=== PATIENT | male | born 1995 | race Two or more races ===

== ENCOUNTER 2016-06-23 04:46 | Inpatient (IN) | payer OTHER ==
[2016-06-23] MEDS ORDERED: NS 0.9% 1000 ML* 2,000 ML IV ONE (05:02)
[2016-06-23 05:15] LABS: Hematocrit 48 % (42-52); Hemoglobin 16.1 g/dl (14.0-18.0); Mean Corpuscular HGB Conc 33 g/dl (31-36); Mean Corpuscular Hemoglobin 28 pg (27-31); Mean Corpuscular Volume 86 fL (80-94); Mean Platelet Volume 8 um3 (7.4-10.4); Red Blood Count 5.65 10^6/ul (4.0-5.4); Red Cell Distribution Width 14 % (10.5-15); White Blood Count 11.2 10^3/ul (3.5-10.8)
[2016-06-23 05:23] LABS: Ammonia 57 mol/L (16-53)
[2016-06-23 05:28] LABS: Acetaminophen < 15 mcg/mL; Alcohol 94 mg/dL (<10); Salicylate < 2.50 mg/dL (<30)
[2016-06-23 05:29] LABS: B Type Natriuretic Peptide 22 pg/mL
[2016-06-23 05:30] LABS: ALT 67 U/L (7-52); AST 46 U/L (13-39); Albumin 4.7 g/dL (3.2-5.2); Alkaline Phosphatase 62 U/L (34-104); Anion Gap 11 mmol/L (2-11); CO2 Carbon Dioxide 22 mmol/L (22-32); Calcium 9.3 mg/dL (8.6-10.3); Chloride 104 mmol/L (101-111); Creatine Kinase 504 U/L (10-223); Potassium 3.1 mmol/L (3.5-5.0); Sodium 137 mmol/L (133-145)
[2016-06-23 05:37] LABS: PCO2 Arterial 29 mmHg (35-45)
[2016-06-23 05:39] LABS: TSH (Thyroid Stimulating Horm) 2.64 mcIU/mL (0.34-5.60)
[2016-06-23] MEDS ORDERED: Ondansetron INJ* 2 MG/ML VIAL ONE (06:07)
[2016-06-23] MEDS ORDERED: METHYLENE BLUE IV ONE ×2 (06:07→08:00)
[2016-06-23] MEDS ORDERED: Ondansetron INJ* 2 MG/ML VIAL IV ONE (06:11)
[2016-06-23] MEDS ORDERED: Midazolam* 1 MG/ML 10 ML VIAL (10 MG) ONE (06:21)
[2016-06-23] MEDS ORDERED: Succinylcholine* 20 MG/ML 10 ML VIAL ONE (06:21)
[2016-06-23 06:22] LABS: BUN/Creatinine Ratio 12.3 (8-20); Blood Urea Nitrogen 13 mg/dL (6-24); C Reactive Protein < 1.00 mg/L (< 5.00); EGFR African American 112.4 (>60); EGFR Non-African American 87.4 (>60); Globulin 2.7 g/dL (2-4); Glucose 133 mg/dL (70-100); Lipase 18 U/L (11.0-82.0); Total Protein 7.5 g/dL (6.4-8.9)
[2016-06-23] MEDS ORDERED: Etomidate* 2 MG/ML 10 ML VIAL ONE (06:22)
[2016-06-23 07:39] LABS: FIO2 100
[2016-06-23 07:43] LABS: PCO2 Arterial 34 mmHg (35-45)
[2016-06-23] MEDS ORDERED: Acetaminophen TAB* 325 MG PO PRN (08:28)
[2016-06-23] MEDS ORDERED: Potassium Chlor TAB* 20 MEQ TAB.ER PO ONE (08:36)
[2016-06-23 09:27] LABS: Urine Bacteria Absent (Absent)
[2016-06-23 09:38] LABS: Benzodiazepine Urine Screen None Detected (None Detect)
--- NOTE | 2016-06-23 10:13 | CONSULT ---
Consult Consult: Consultation Note Critical Care Requesting Physician: Dr Wolff Reason for consult: hypoxia, drug intake Limitations in history/physical: none Date of consult: 06/23/2016 HPI: 20y M with no pmhx. Brought in by EMS after he took 'poppers', complained of chest tightness. According to patient he doesnt recall all the events from last night. He doesnt remember feeling anything. EMS record indicated he was found to be hypoxic, in ER sats 91-92% on RA. Given supplemental O2. Utox otherwise negative. ABG revealed elevated methhemoglobin level. He was found to have elevated lactic acid level, no hypotension and elevated troponins. EKG demonstrated t-wave inversions in inferior leads. He denies any other drug use. He states he was not trying to hurt himself. He denies n/v/cp/sob. headache present now. no abd pain/diarrhea/constip. no dysuria. no blurry vision. no dyspnes on exertion. no other medical problems known to him. He was given IV methylene blue in the ER after poison control was called and hypoxia improved. Current vitals - sat 98% RA, rr 17-18, HR 70-80s sinus rhythm. ED/floor Course: as above ROS: All ROS are negative except positives mentioned above. PMHx: none; suicide attempt history in past? PSHx: none Family History: none Social History: Alcohol-, Smoking-, Drug use-; A student Allergies: none Home Medications: none Vitals: Vital Signs Temp 99.9 F 06/23/16 08:00 Pulse 109 06/23/16 10:30 Resp 14 06/23/16 10:30 BP 128/68 06/23/16 10:30 Pulse Ox 97 06/23/16 10:30 Intake & Output 06/22/16 06/23/16 06/23/16 18:59 06:59 18:59 Output Total 1400 Balance -1400 Weight 165 lb 171 lb 15.369 oz Output: Urine 1400 O2/Vent: RA, sat 97% Infusions: NS infusion 100cc/hour Current Medications: Current Medications Acetaminophen (Tylenol Tab*) 650 mg PO Q4H PRN PRN Reason: PAIN Last Admin: 06/23/16 10:28 Dose: 650 mg Sodium Chloride (Ns 0.9% 1000 Ml*) 1,000 mls @ 100 mls/hr IV PER RATE JOSEFA Physical Exam: General: awake, alert, no distress, no diaphoresis Head: normocephalic, atraumatic HEENT: no pallor, no icterus, moist mucous membranes Neck: no stridor, no jvd CVS: normal rate, normal rhythm, no murmur Resp: bilateral air entry, no rhales, no wheeze, no rhonchi, no acc muscle use Abdomen: soft, nontender, nondistended, bowel sounds present Ext: pulses+, warm, no edema Skin: intact, no breakdown Neuro: awake, alert, orientedx3, moving all extremities, no gross focal deficit Labs: Laboratory Results - last 24 hr 06/23/16 06/23/16 06/23/16 04:45 04:45 04:45 WBC 11.2 H RBC 5.65 H Hgb 16.1 Hct 48 MCV 86 MCH 28 MCHC 33 RDW 14 Plt Count 338 MPV 8 Neut % (Auto) 72.2 Lymph % (Auto) 19.6 L [place] % (Auto) 4.0 Eos % (Auto) 2.1 Baso % (Auto) 2.1 H Absolute Neuts (auto) 8.1 H Absolute Lymphs (auto) 2.2 Absolute Monos (auto) 0.5 Absolute Eos (auto) 0.2 Absolute Basos (auto) 0.2 Absolute Nucleated RBC 0.01 Nucleated RBC % 0 INR (Anticoag Therapy) 0.97 APTT 25.9 L Patient Temperature ABG pH ABG pCO2 ABG pO2 ABG HCO3 ABG O2 Saturation ABG Base Excess Methemoglobin 29.4 H Respiration Rate O2 Delivery Device Ventilator Type Vent Mode FiO2 Inspiratory Time PEEP Pressure Support Pressure Control EPAP IPAP BiPAP Sodium 137 Potassium 3.1 L Chloride 104 Carbon Dioxide 22 Anion Gap 11 BUN 13 Creatinine 1.06 Est GFR ( Amer) 112.4 Est GFR (Non-Af Amer) 87.4 BUN/Creatinine Ratio 12.3 Glucose 133 H Lactic Acid Calcium 9.3 Magnesium 2.0 Total Bilirubin 0.40 AST 46 H ALT 67 H Alkaline Phosphatase 62 Ammonia Total Creatine Kinase 504 H CK-MB (CK-2) 5.2 Troponin I 0.20 H* C-Reactive Protein < 1.00 B-Natriuretic Peptide Total Protein 7.5 Albumin 4.7 Globulin 2.7 Albumin/Globulin Ratio 1.8 Lipase 18 TSH 2.64 Urine Color Urine Appearance Urine pH Ur Specific [place] Urine Protein Urine Ketones Urine Blood Urine Nitrate Urine Bilirubin Urine Urobilinogen Ur Leukocyte Esterase Urine WBC (Auto) Urine RBC (Auto) Urine Bacteria Urinalysis Comment Urine Glucose Urine Ascorbic Acid Salicylates < 2.50 Urine Opiates Screen Acetaminophen < 15 Ur Barbiturates Screen Ur Phencyclidine Scrn Ur Amphetamines Screen U Benzodiazepines Scrn Urine Cocaine Screen U Cannabinoids Screen Serum Alcohol 94 H 06/23/16 06/23/16 06/23/16 04:45 04:45 05:25 WBC RBC Hgb Hct MCV MCH MCHC RDW Plt Count MPV Neut % (Auto) Lymph % (Auto) [place] % (Auto) Eos % (Auto) Baso % (Auto) Absolute Neuts (auto) Absolute Lymphs (auto) Absolute Monos (auto) Absolute Eos (auto) Absolute Basos (auto) Absolute Nucleated RBC Nucleated RBC % INR (Anticoag Therapy) APTT Patient Temperature ABG pH 7.44 ABG pCO2 29 L ABG pO2 95 ABG HCO3 21.7 ABG O2 Saturation 98.7 H ABG Base Excess -3.0 L Methemoglobin Respiration Rate O2 Delivery Device Ventilator Type Vent Mode FiO2 Inspiratory Time PEEP Pressure Support Pressure Control EPAP IPAP BiPAP Sodium Potassium Chloride Carbon Dioxide Anion Gap BUN Creatinine Est GFR ( Amer) Est GFR (Non-Af Amer) BUN/Creatinine Ratio Glucose Lactic Acid 4.0 H* Calcium Magnesium Total Bilirubin AST ALT Alkaline Phosphatase Ammonia 57 H Total Creatine Kinase CK-MB (CK-2) Troponin I C-Reactive Protein B-Natriuretic Peptide 22 Total Protein Albumin Globulin Albumin/Globulin Ratio Lipase TSH Urine Color Urine Appearance Urine pH Ur Specific [place] Urine Protein Urine Ketones Urine Blood Urine Nitrate Urine Bilirubin Urine Urobilinogen Ur Leukocyte Esterase Urine WBC (Auto) Urine RBC (Auto) Urine Bacteria Urinalysis Comment Urine Glucose Urine Ascorbic Acid Salicylates Urine Opiates Screen Acetaminophen Ur Barbiturates Screen Ur Phencyclidine Scrn Ur Amphetamines Screen U Benzodiazepines Scrn Urine Cocaine Screen U Cannabinoids Screen Serum Alcohol 06/23/16 06/23/16 06/23/16 07:23 07:23 08:55 WBC RBC Hgb Hct MCV MCH MCHC RDW Plt Count MPV Neut % (Auto) Lymph % (Auto) [place] % (Auto) Eos % (Auto) Baso % (Auto) Absolute Neuts (auto) Absolute Lymphs (auto) Absolute Monos (auto) Absolute Eos (auto) Absolute Basos (auto) Absolute Nucleated RBC Nucleated RBC % INR (Anticoag Therapy) APTT Patient Temperature Not Reportable ABG pH 7.39 ABG pCO2 34 L ABG pO2 263 H ABG HCO3 22.1 ABG O2 Saturation 99.4 H ABG Base Excess -3.5 L Methemoglobin 2.5 H Respiration Rate Not Reportable O2 Delivery Device Oxymask Ventilator Type Not Reportable Vent Mode Not Reportable FiO2 100 Inspiratory Time Not Reportable PEEP Not Reportable Pressure Support Not Reportable Pressure Control Not Reportable EPAP Not Reportable IPAP Not Reportable BiPAP Not Reportable Sodium Potassium Chloride Carbon Dioxide Anion Gap BUN Creatinine Est GFR ( Amer) Est GFR (Non-Af Amer) BUN/Creatinine Ratio Glucose Lactic Acid Calcium Magnesium Total Bilirubin AST ALT Alkaline Phosphatase Ammonia Total Creatine Kinase CK-MB (CK-2) Troponin I 1.00 H* C-Reactive Protein B-Natriuretic Peptide Total Protein Albumin Globulin Albumin/Globulin Ratio Lipase TSH Urine Color Urine Appearance Urine pH Ur Specific [place] Urine Protein Urine Ketones Urine Blood Urine Nitrate Urine Bilirubin Urine Urobilinogen Ur Leukocyte Esterase Urine WBC (Auto) Urine RBC (Auto) Urine Bacteria Urinalysis Comment Urine Glucose Urine Ascorbic Acid Salicylates Urine Opiates Screen Acetaminophen Ur Barbiturates Screen Ur Phencyclidine Scrn Ur Amphetamines Screen U Benzodiazepines Scrn Urine Cocaine Screen U Cannabinoids Screen Serum Alcohol 06/23/16 06/23/16 06/23/16 08:55 09:05 09:05 WBC RBC Hgb Hct MCV MCH MCHC RDW Plt Count MPV Neut % (Auto) Lymph % (Auto) [place] % (Auto) Eos % (Auto) Baso % (Auto) Absolute Neuts (auto) Absolute Lymphs (auto) Absolute Monos (auto) Absolute Eos (auto) Absolute Basos (auto) Absolute Nucleated RBC Nucleated RBC % INR (Anticoag Therapy) APTT Patient Temperature ABG pH ABG pCO2 ABG pO2 ABG HCO3 ABG O2 Saturation ABG Base Excess Methemoglobin Respiration Rate O2 Delivery Device Ventilator Type Vent Mode FiO2 Inspiratory Time PEEP Pressure Support Pressure Control EPAP IPAP BiPAP Sodium Potassium Chloride Carbon Dioxide Anion Gap BUN Creatinine Est GFR ( Amer) Est GFR (Non-Af Amer) BUN/Creatinine Ratio Glucose Lactic Acid 2.8 H* Calcium Magnesium Total Bilirubin AST ALT Alkaline Phosphatase Ammonia Total Creatine Kinase CK-MB (CK-2) Troponin I C-Reactive Protein B-Natriuretic Peptide Total Protein Albumin Globulin Albumin/Globulin Ratio Lipase TSH Urine Color Green A Urine Appearance Clear Urine pH TNP Ur Specific [place] 1.015 Urine Protein TNP Urine Ketones TNP Urine Blood TNP Urine Nitrate TNP Urine Bilirubin TNP Urine Urobilinogen TNP Ur Leukocyte Esterase TNP Urine WBC (Auto) Trace(0-5/hpf) Urine RBC (Auto) Trace(0-2/hpf) Urine Bacteria Absent Urinalysis Comment Urine Glucose TNP Urine Ascorbic Acid TNP Salicylates Urine Opiates Screen None detected Acetaminophen Ur Barbiturates Screen None detected Ur Phencyclidine Scrn None detected Ur Amphetamines Screen None detected U Benzodiazepines Scrn None detected Urine Cocaine Screen None detected U Cannabinoids Screen None detected Serum Alcohol Imaging: cxr 06/23 - no infiltrate/effusion/ptx Assessment: 20y M with no pmhx; brought in for chest pain/sob? He took 'poppers ' (nitrates) and was hypoxic. -Acute hypoxia 2/2 to methemoglobinemia induced by Nitrates -Elevated troponins, NSTEMI type II from hypoxia is suspected -Hyperlactatemia Plan: Neuro- stable. will need psychiatry eval. unlikely to be suicide attempt. CVS-hemodyn stable. no hypotension. lactic acid level elevated likely from acute hypoxia. trending down now. no hemodyn instability noted. cont NS infusion for hydration. Elevated troponin to 1, EKG demonstrated inf wall twave inversions only, no other ST changes. follow up repeat EKG now. Trend troponin. ECHO today. Cardiology consult. Most likely demand ischemia from hypoxia, type II NSTEMI. Resp-no resp distress now. on RA. CXR clear. ABG reviewed. s/p IV methylene blue administration, now hypoxia resolved. NC supplemental o2 as needed. no indication for ABG again now, seems improved clinically. ID-no wbc elevation or signs of sepsis. no abx indicated. lactic acid from non- infectious etiology. GI-regular diet Renal-normal Cr, IVF NS infusion. no patel. making urine. Heme-no anemia. no bleeding. elevated methemoglobin levels on admission, s/p methylene blue adminsitration. advised patient he may have relative enzyme def causing ppt'ion of methemoglobin, needs to stop 'poppers' and will need education on likely avoiding certain abx/medications in the future. Endo- no h/o dm Musculsk-some pain, prn tylenol Wounds-none Nutrition-regular diet DVT prophylaxis: none, not at risk for dvt, can mobilize GI prophylaxis:none Central Line:none Arterial Line:none Patel Cathetor:none Disposition: ICU for hypoxia 2/2 to methhemoglobinemia. now improved. Code Status: full code Aly Carmona MD Plumber'S Assistant (Electronically Signed)
--- NOTE | 2016-06-23 10:16 | PN ---
Progress Note - Progress Note Note: Repeat troponin is up to 1.0. I spoke with cardiology who felt that the elevated troponin was likely related to hypoperfusion and low oxygen levels from ingestion of the isobutyl nitrite. He agreed with obtaining an echo and following up the troponin but no further work up is necessary.
--- NOTE | 2016-06-23 10:38 | RAD ---
Indication: Overdose. Low O2 saturation. Comparison: None. Technique: Upright AP 0511 hours Report: Lung volumes are within normal limits. Mild reticular opacities in the bilateral lower lung zones. Negative for pleural effusion or pneumothorax. The heart, pulmonary vasculature, and mediastinal contours are unremarkable. IMPRESSION: Mild reticular opacities in the bilateral lower lung zones may represent atelectasis or inflammatory infiltrate/aspiration.
[2016-06-23] MEDS: NS 0.9% 1000 ML* 1,000 ML IV SCH (17:23)
--- NOTE | 2016-06-23 17:29 | HP ---
HISTORY AND PHYSICAL: DATE OF ADMISSION: 06/23/16 PRIMARY CARE PROVIDER: None. CHIEF COMPLAINT: Altered mental status and ingestion of isobutyl nitrite. HISTORY OF PRESENT ILLNESS: Mr. Forbes is a 20-year-old male, who has sex with men, who presents to the emergency room after ingesting up to possibly 2 bottles of isobutyl nitrite, also known as "sylvester." The patient states that he does not remember the events of last evening or early this morning at all. He states that everything is very hazy. The patient's partner, Esvin, is present at the time of my evaluation, and the patient agrees to allow me to speak with him. Esvin states that last evening, they got into an argument and essentially the patient was screaming that he did not feel that Esvin cared for him at all. Esvin believes that he drank a bottle of the isobutyl nitrite at that time. He then began dry heaving significantly. Esvin was leaving to the parking lot when he noticed Augusto' dry heaving. He came back to him. Augusto then locked himself in the apartment. Esvin had to breakdown the front door and began calling 911. The patient was found in the shower with another bottle of the isobutyl nitrite (making this 2 bottles). Esvin stated that he remained on the phone with 911 until police arrived. The patient was reportedly screaming at the profiling machine setup operator that no body needed to come, that he was fine. It was Esvin's impression that Augusto was trying to kill himself by ingesting the isobutyl nitrite. The patient was brought to the emergency room, where he was noted to be very diaz in color. PAST MEDICAL HISTORY: None. SURGICAL HISTORY: Tonsillectomy. MEDICATIONS: None. ALLERGIES: No known drug allergies. FAMILY HISTORY: Mom is living, she is 46 and healthy. Dad is living, his health is unknown. He has no siblings. He does not smoke. He drinks on occasion, but when he does drink, he does binge drink. He states that he huffs the isobutyl nitrite from time to time, but this is first time he ingested it. He works doing clerical work. He is not . He has no children. His partner, Esvin, again, is present at the time of my evaluation. I asked the patient who would you want as his surrogate decision maker and at this time he is unable to choose an individual to make his decisions for him. REVIEW OF SYSTEMS: The patient denies any fevers, chills, or anorexia. No chest pain. No edema. No palpations. No cough. He has mild shortness of breath. No abdominal pain. He has had intermittent nausea. No diarrhea or constipation. No hematuria or dysuria. No focal weakness or sensory loss. No sudden changes in vision. No dysphagia. No joint pains or muscle pains out of ordinary. No rashes. He does admit to anxiety and depression. PHYSICAL EXAMINATION GENERAL: The patient is a well-developed young male, sitting up in the bed, in no acute distress. VITAL SIGNS: Blood pressure 131/70, pulse 94, respirations 15, temperature 99.9 , O2 saturation 99% on 3 L. HEENT: Pupils are equal, they are round, they react to light. Extraocular muscles are intact. Oropharynx is clear. Oral mucosa is moist. There is no submandibular, cervical, or supraclavicular adenopathy. NECK: Thyroid is not enlarged. No thyroid nodules noted. PULMONARY: Lungs are clear to auscultation bilaterally. CARDIAC: Normal S1, S2. Regular rate and rhythm. I do not appreciate any murmurs, rubs or gallops. ABDOMEN: Bowel sounds are present. Abdomen is soft, nontender, nondistended. MUSCULOSKELETAL: There is no cyanosis or clubbing of the digits. There is full active range of motion. SKIN: Warm and dry. There are no rashes. There are, what appear to be, scratches on the patient's chest and perhaps the left side of his neck. He has a small laceration to the left presybeterian. NEUROLOGIC: Cranial nerves II through XII are grossly intact. Sensation is intact to light touch throughout. Strength is 5/5 and symmetric in both upper and lower extremities bilaterally. PSYCH: The patient is alert. He is oriented x3. Affect appears appropriate. DIAGNOSTIC STUDIES/LAB DATA: WBC 11.2, hemoglobin 16.1, hematocrit 48, platelets 338. INR is 0.97. Sodium 137, potassium 3.1, chloride 104, CO2 of 22 , BUN 13, creatinine 1.06, glucose 133, lactic acid 4.0, calcium 9.3, magnesium 2.0. Bilirubin 0.4, AST 46, ALT 67, alk phos 62. Ammonia 57. CPK 504, CK-MB 5.2. Troponin 0.2. CRP less than 1. BNP 22. Albumin 4.7, lipase 18. TSH 2.64. Salicylate less than 2.5. Tylenol less than 15. Serum alcohol 94. ABG: pH 7.44, pCO2 of 29, pO2 of 95. Methemoglobin 29.4%. Chest x-ray: Clear to my evaluation, this has not been read by the radiologist yet. EKG reveals normal sinus rhythm, with a heart rate of 99, mild ST elevation in the anterior leads, but most consistent with early repolarization. ASSESSMENT AND PLAN: Mr. Forbes is a 20-year-old male, who got into an argument with his partner and ingested up to 2 bottles of isobutyl nitrite with subsequent dry heaving and the development of methemoglobinemia. 1. Methemoglobinemia. At this point, the patient did receive 15 mL of methylene blue in the emergency room. Staff from the emergency room as well as Respiratory Therapy noted that the patient had dramatic improvement. The patient was noted to be diaz in color prior to receiving the methylene blue, now has normal coloration. Additionally, the blood obtained for his initial ABG was reported to be very dark, almost black in color, and now is red in color. The patient will be monitored in the intensive care unit. I did speak with Poison Control, who did not recommend any further doses of methylene blue. The patient will be monitored in terms of his vital signs and other lab abnormalities in the ICU, though likely can be transitioned to the floor relatively quickly. 2. Possible purposeful ingestion of isobutyl nitrite as an attempt to cause self- harm. The patient will be seen in consultation by Psychiatry. I am placing this consult at the time of his admission. The patient himself, at this time, denies any suicidal ideation. I do not believe that he needs one-to- one monitoring at this point, though close monitoring in ICU does seem appropriate. 3. Elevated troponin. I suspect this is demand ischemia. I will get a followup troponin level now as well as a transthoracic echocardiogram to evaluate for wall motion abnormalities. I suspect this will trend down; however , if the troponin does trend up, I will speak with Cardiology. 4. Lactic acidosis. I suspect this is related to his toxic ingestion and the dry heaving. He has been receiving normal saline in the emergency room and again in the ICU. We will get a followup lactic acid level now. 5. Transaminitis. The patient has very mild elevations in his liver enzymes. His CPK is also elevated. It is unclear if may be these are related. He will be hydrated and the followup levels will be obtained tomorrow morning. 6. Elevated CPK. The patient did have a fall at some point. Neither the patient nor his partner know when this fall truly occurred. We will get a followup CPK level tomorrow morning. 7. Leukocytosis. This is mild, with white blood cell count of 11.2. I suspect this is stress reaction. There are no clear signs of infection. I am going to hold off on antibiotics and get a followup level tomorrow morning. 8. DVT prophylaxis. According to the Adult Thrombosis Prophylaxis Risk Factor Assessment Guide, the patient has a total risk factor score of 0, making him low risk. Ambulation will be utilized as DVT prophylaxis. 9. Code status is full. Again, the patient is unable to decide on the surrogate decision maker at this time. TIME SPENT: Sixty-five minutes were spent admitting this patient. [id number]/[facility] #: [id number] VINCENT
--- NOTE | 2016-06-23 19:35 | ED ---
Adelina Russell Janilya, scribed for Daquan Barrera MD on 06/23/16 at 0505 . Substance Abuse/Use - HPI Summary HPI Summary: A 20 y/o male was BIBA 941 for ingesting two bottles of isobutyl nitrite, substance also known as poppers. His partner did not personally witness this, however he found him in the bathroom over the toilet vomiting. According to EMS , pt told his partner that his chest was burning. On the floor, there were two empty bottles of isobutyl nitrite. Earlier that day, pt had a few shots of hard liquor. Currently at [facility], pt denies everything. Pt does not complain of head injury, SOB. There is PMHx of attempted suicide with pills. - History Of Current Complaint Chief Complaint: EDOverdose Stated Complaint: 941/OVERDOSE Time Seen by Provider: 06/23/16 04:50 Hx Obtained From: Patient, EMS Ingestion History: Type/Name Of Drug - Isobutyl nitrite, also known as poppers, Amount Ingested - 2 bottles Overdose Characteristics: Oral Severity Initially: Moderate Severity Currently: Moderate Aggravating Factor(s): Nothing Alleviating Factor(s): Nothing Associated Signs And Symptoms: Vomiting - Allergies/Home Medications Allergies/Adverse Reactions: Allergies Allergy/AdvReac Type Severity Reaction Status Date / Time No Known Allergies Allergy Verified 06/23/16 04:59 Home Medications: Home Medications NK [No Home Medications Reported] 06/23/16 [History Confirmed 06/23/16] PMH/Surg Hx/FS Hx/Imm Hx Previously Healthy: Yes Cardiovascular History: Denies: Hx Aneurysm Psychiatric History: Reports: Hx Suicide Attempt Infectious Disease History: No Infectious Disease History: Denies: Traveled Outside the [place] in Last 30 Days - Family History Known Family History: Positive: Unknown - Social History Occupation: Student Review of Systems Negative: Shortness Of Breath Positive: Other - pt denies head injury All Other Systems Reviewed And Are Negative: Yes Physical Exam Triage Information Reviewed: Yes Vital Signs On Initial Exam: Initial Vitals Temp Pulse Resp BP Pulse Ox 99.3 F 87 22 125/72 92 06/23/16 04:48 06/23/16 04:48 06/23/16 04:48 06/23/16 04:48 06/23/16 04:48 Vital Signs Reviewed: Yes Appearance: Positive: Well-Appearing, No Pain Distress Skin: Positive: Warm, Skin Color Reflects Adequate Perfusion, Dry Head/Face: Positive: Other - Lower lip of rosen color. Eyes: Positive: EOMI, BELKIS ENT: Positive: Normal ENT inspection Neck: Positive: Supple, Nontender Cardiovascular: Positive: Tachycardia Abdomen Description: Positive: Nontender, Soft Bowel Sounds: Positive: Present Musculoskeletal: Positive: Normal, Strength/ROM Intact Neurological: Positive: Normal, Sensory/Motor Intact, Alert, Oriented to Person Place, Time Psychiatric: Positive: Other - Mildly confused Diagnostics - Vital Signs Vital Signs Temp Pulse Resp BP Pulse Ox 06/23/16 04:48 99.3 F 87 22 125/72 92 - Laboratory Lab Results: Lab Results 06/23/16 06/23/16 06/23/16 Range/Units 04:45 04:45 04:45 WBC 11.2 H (3.5-10.8) 10^3/ul RBC 5.65 H (4.0-5.4) 10^6/ul Hgb 16.1 (14.0-18.0) g/dl Hct 48 (42-52) % MCV 86 (80-94) fL MCH 28 (27-31) pg MCHC 33 (31-36) g/dl RDW 14 (10.5-15) % Plt Count 338 (150-450) 10^3/ul MPV 8 (7.4-10.4) um3 Neut % (Auto) 72.2 (38-83) % Lymph % (Auto) 19.6 L (25-47) % Peach % (Auto) 4.0 (1-9) % Eos % (Auto) 2.1 (0-6) % Baso % (Auto) 2.1 H (0-2) % Absolute Neuts (auto) 8.1 H (1.5-7.7) 10^3/ul Absolute Lymphs (auto) 2.2 (1.0-4.8) 10^3/ul Absolute Monos (auto) 0.5 (0-0.8) 10^3/ul Absolute Eos (auto) 0.2 (0-0.6) 10^3/ul Absolute Basos (auto) 0.2 (0-0.2) 10^3/ul Absolute Nucleated RBC 0.01 10^3/ul Nucleated RBC % 0 INR (Anticoag Therapy) 0.97 (0.89-1.11) APTT 25.9 L (26.0-36.3) seconds ABG pH (7.35-7.45) ABG pCO2 (35-45) mmHg ABG pO2 (80-100) mmHg ABG HCO3 (19-31) mmol/L ABG O2 Saturation (95-98) % ABG Base Excess (-2.0-2.0) Methemoglobin 29.4 H (LESS THAN 2) % Sodium 137 (133-145) mmol/L Potassium 3.1 L (3.5-5.0) mmol/L Chloride 104 (101-111) mmol/L Carbon Dioxide 22 (22-32) mmol/L Anion Gap 11 (2-11) mmol/L BUN 13 (6-24) mg/dL Creatinine 1.06 (0.67-1.17) mg/dL Est GFR ( Amer) 112.4 (>60) Est GFR (Non-Af Amer) 87.4 (>60) BUN/Creatinine Ratio 12.3 (8-20) Glucose 133 H (70-100) mg/dL Lactic Acid (0.5-2.0) mmol/L Calcium 9.3 (8.6-10.3) mg/dL Magnesium 2.0 (1.9-2.7) mg/dL Total Bilirubin 0.40 (0.2-1.0) mg/dL AST 46 H (13-39) U/L ALT 67 H (7-52) U/L Alkaline Phosphatase 62 (34-104) U/L Ammonia (16-53) mol/L Total Creatine Kinase 504 H (10-223) U/L CK-MB (CK-2) 5.2 (0.6-6.3) ng/mL Troponin I 0.20 H* (<0.04) ng/mL C-Reactive Protein < 1.00 (< 5.00) mg/L B-Natriuretic Peptide ( - 100) pg/mL Total Protein 7.5 (6.4-8.9) g/dL Albumin 4.7 (3.2-5.2) g/dL Globulin 2.7 (2-4) g/dL Albumin/Globulin Ratio 1.8 (1-3) Lipase 18 (11.0-82.0) U/L TSH 2.64 (0.34-5.60) mcIU/mL Salicylates < 2.50 (<30) mg/dL Acetaminophen < 15 mcg/mL Serum Alcohol 94 H (<10) mg/dL 06/23/16 06/23/16 06/23/16 Range/Units 04:45 04:45 05:25 WBC (3.5-10.8) 10^3/ul RBC (4.0-5.4) 10^6/ul Hgb (14.0-18.0) g/dl Hct (42-52) % MCV (80-94) fL MCH (27-31) pg MCHC (31-36) g/dl RDW (10.5-15) % Plt Count (150-450) 10^3/ul MPV (7.4-10.4) um3 Neut % (Auto) (38-83) % Lymph % (Auto) (25-47) % Peach % (Auto) (1-9) % Eos % (Auto) (0-6) % Baso % (Auto) (0-2) % Absolute Neuts (auto) (1.5-7.7) 10^3/ul Absolute Lymphs (auto) (1.0-4.8) 10^3/ul Absolute Monos (auto) (0-0.8) 10^3/ul Absolute Eos (auto) (0-0.6) 10^3/ul Absolute Basos (auto) (0-0.2) 10^3/ul Absolute Nucleated RBC 10^3/ul Nucleated RBC % INR (Anticoag Therapy) (0.89-1.11) APTT (26.0-36.3) seconds ABG pH 7.44 (7.35-7.45) ABG pCO2 29 L (35-45) mmHg ABG pO2 95 (80-100) mmHg ABG HCO3 21.7 (19-31) mmol/L ABG O2 Saturation 98.7 H (95-98) % ABG Base Excess -3.0 L (-2.0-2.0) Methemoglobin (LESS THAN 2) % Sodium (133-145) mmol/L Potassium (3.5-5.0) mmol/L Chloride (101-111) mmol/L Carbon Dioxide (22-32) mmol/L Anion Gap (2-11) mmol/L BUN (6-24) mg/dL Creatinine (0.67-1.17) mg/dL Est GFR ( Amer) (>60) Est GFR (Non-Af Amer) (>60) BUN/Creatinine Ratio (8-20) Glucose (70-100) mg/dL Lactic Acid 4.0 H* (0.5-2.0) mmol/L Calcium (8.6-10.3) mg/dL Magnesium (1.9-2.7) mg/dL Total Bilirubin (0.2-1.0) mg/dL AST (13-39) U/L ALT (7-52) U/L Alkaline Phosphatase (34-104) U/L Ammonia 57 H (16-53) mol/L Total Creatine Kinase (10-223) U/L CK-MB (CK-2) (0.6-6.3) ng/mL Troponin I (<0.04) ng/mL C-Reactive Protein (< 5.00) mg/L B-Natriuretic Peptide 22 ( - 100) pg/mL Total Protein (6.4-8.9) g/dL Albumin (3.2-5.2) g/dL Globulin (2-4) g/dL Albumin/Globulin Ratio (1-3) Lipase (11.0-82.0) U/L TSH (0.34-5.60) mcIU/mL Salicylates (<30) mg/dL Acetaminophen mcg/mL Serum Alcohol (<10) mg/dL Result Diagrams: 06/23/16 04:45 06/23/16 04:45 Lab Statement: Any lab studies that have been ordered have been reviewed, and results considered in the medical decision making process. - EKG 0442 Cardiac Rate: Tachycardia - 99 bpm EKG Rhythm: Sinus Rhythm EKG Interpretation: Early repolarization. Flipped T waves in inferior leads. Course/Dx - Course Assessment/Plan: Pt is a 20 y/o male who ingested two bottles of isobutyl nitrite, substance also known as poppers. Pt was BIBA 941 and pt denies everything. He does not complain of head injury or SOB. Elevated lactic acid noted at 4.0 H. POISON CONTROL CONSULTED. PATIENT CONTINUED TO DETERIORATE IN ED WITH HYPOXIA. METHYLENE BLUE GIVEN IV WITH IMPROVEMENT. PATIENT WILL NEED A MENTAL HEALTH EXAM THIS APPEARS TO BE AN INTENTIONAL OVERDOSE. ADMIT GUARDED ICU BY HOSPITALIST. - Diagnoses Provider Diagnoses: methemglobinemia, Overdose, Mental health problem - Physician Notifications Discussed Care Of Patient With: Poison Control Center at 0545: recommended methylene blue as antidote. - Critical Care Time Critical Care Time: 75-104 min Discharge - Discharge Plan Condition: Guarded Disposition: ADMITTED TO [facility] documentation as recorded by the Adelina whyte Janilya accurately reflects the service I personally performed and the decisions made by me, Daquan Barrera MD.
[2016-06-24] MEDS: NS 0.9% 1000 ML* 1,000 ML IV SCH (02:58)
[2016-06-24 05:10] LABS: Hematocrit 45 % (42-52); Hemoglobin 15.1 g/dl (14.0-18.0); Mean Corpuscular HGB Conc 34 g/dl (31-36); Mean Corpuscular Hemoglobin 29 pg (27-31); Mean Corpuscular Volume 86 fL (80-94); Mean Platelet Volume 8 um3 (7.4-10.4); Red Cell Distribution Width 14 % (10.5-15); White Blood Count 10.5 10^3/ul (3.5-10.8)
[2016-06-24 05:28] LABS: BUN/Creatinine Ratio 11.1 (8-20); Calcium 8.9 mg/dL (8.6-10.3); Direct Bilirubin 0.1 mg/dL (0.03-0.18); EGFR African American 135.7 (>60); EGFR Non-African American 105.5 (>60); Globulin 2.7 g/dL (2-4); Indirect Bilirubin 0.5 mg/dL (0.3-1.0); Potassium 4.3 mmol/L (3.5-5.0); Total Bilirubin 0.6 mg/dL (0.2-1.0); Total Protein 6.7 g/dL (6.4-8.9)
[2016-06-24 08:00] LABS: Troponin I 0.07 ng/mL (<0.04)
--- NOTE | 2016-06-24 09:07 | PN ---
Progress Note - Progress Note Note: Progress Note Critical Care 24 hour events/significant events: -overnight no sig events noted; on RA, hemodyn stable -fever spike noted yesterday 101.6; overnight no further fevers. -on NS infusion Vitals: Vital Signs Temp 98.7 F 06/24/16 08:00 Pulse 74 06/24/16 09:00 Resp 19 06/24/16 09:00 BP 120/66 06/24/16 09:00 Pulse Ox 99 06/24/16 09:00 Intake & Output 06/23/16 06/24/16 06/24/16 18:59 06:59 18:59 Intake Total 440 2659 Output Total 1400 850 950 Balance -960 1809 -950 Weight 171 lb 15.369 oz 174 lb 9.698 oz Intake: IV Fluids 2139 NS (0.9%) 2139 Oral 440 520 Output: Urine 1400 850 950 O2/Vent: RA, sat 99%, rr 17 Infusions: ns 100 cc/hour Medications: Acetaminophen (Tylenol Tab*) 650 mg PO Q4H PRN PRN Reason: PAIN Last Admin: 06/23/16 10:28 Dose: 650 mg Sodium Chloride (Ns 0.9% 1000 Ml*) 1,000 mls @ 100 mls/hr IV PER RATE JOSEFA Last Admin: 06/24/16 02:58 Dose: 100 mls/hr Physical Exam: General: awake, alert, no distress, no diaphoresis Head: normocephalic, atraumatic HEENT: no pallor, no icterus, moist mucous membranes Neck: no stridor, no jvd CVS: normal rate, normal rhythm, no murmur Resp: bilateral air entry, no rhales, no wheeze, no rhonchi, no acc muscle use Abdomen: soft, nontender, nondistended, bowel sounds present Ext: pulses+, warm, no edema Skin: intact, no breakdown Neuro: awake, alert, orientedx3, moving all extremities, no gross focal deficit Labs: Laboratory Results - last 24 hr 06/23/16 06/23/16 06/23/16 08:55 08:55 09:05 WBC RBC Hgb Hct MCV MCH MCHC RDW Plt Count MPV Neut % (Auto) Lymph % (Auto) Sandoval % (Auto) Eos % (Auto) Baso % (Auto) Absolute Neuts (auto) Absolute Lymphs (auto) Absolute Monos (auto) Absolute Eos (auto) Absolute Basos (auto) Absolute Nucleated RBC Nucleated RBC % Sodium Potassium Chloride Carbon Dioxide Anion Gap BUN Creatinine Est GFR ( Amer) Est GFR (Non-Af Amer) BUN/Creatinine Ratio Glucose Lactic Acid 2.8 H* Calcium Total Bilirubin Direct Bilirubin Indirect Bilirubin AST ALT Alkaline Phosphatase Total Creatine Kinase 746 H Troponin I 1.00 H* Total Protein Albumin Globulin Albumin/Globulin Ratio Urine Color Green A Urine Appearance Clear Urine pH TNP Ur Specific [place] 1.015 Urine Protein TNP Urine Ketones TNP Urine Blood TNP Urine Nitrate TNP Urine Bilirubin TNP Urine Urobilinogen TNP Ur Leukocyte Esterase TNP Urine WBC (Auto) Trace(0-5/hpf) Urine RBC (Auto) Trace(0-2/hpf) Urine Bacteria Absent Urinalysis Comment Urine Glucose TNP Urine Ascorbic Acid TNP Urine Opiates Screen Ur Barbiturates Screen Ur Phencyclidine Scrn Ur Amphetamines Screen U Benzodiazepines Scrn Urine Cocaine Screen U Cannabinoids Screen 06/23/16 06/23/16 06/23/16 09:05 13:10 13:10 WBC RBC Hgb Hct MCV MCH MCHC RDW Plt Count MPV Neut % (Auto) Lymph % (Auto) Sandoval % (Auto) Eos % (Auto) Baso % (Auto) Absolute Neuts (auto) Absolute Lymphs (auto) Absolute Monos (auto) Absolute Eos (auto) Absolute Basos (auto) Absolute Nucleated RBC Nucleated RBC % Sodium Potassium Chloride Carbon Dioxide Anion Gap BUN Creatinine Est GFR ( Amer) Est GFR (Non-Af Amer) BUN/Creatinine Ratio Glucose Lactic Acid 1.5 Calcium Total Bilirubin Direct Bilirubin Indirect Bilirubin AST ALT Alkaline Phosphatase Total Creatine Kinase Troponin I 0.54 H* Total Protein Albumin Globulin Albumin/Globulin Ratio Urine Color Urine Appearance Urine pH Ur Specific [place] Urine Protein Urine Ketones Urine Blood Urine Nitrate Urine Bilirubin Urine Urobilinogen Ur Leukocyte Esterase Urine WBC (Auto) Urine RBC (Auto) Urine Bacteria Urinalysis Comment Urine Glucose Urine Ascorbic Acid Urine Opiates Screen None detected Ur Barbiturates Screen None detected Ur Phencyclidine Scrn None detected Ur Amphetamines Screen None detected U Benzodiazepines Scrn None detected Urine Cocaine Screen None detected U Cannabinoids Screen None detected 06/24/16 06/24/16 05:00 05:00 WBC 10.5 RBC 5.20 Hgb 15.1 Hct 45 MCV 86 MCH 29 MCHC 34 RDW 14 Plt Count 241 MPV 8 Neut % (Auto) 57.1 Lymph % (Auto) 33.9 Sandoval % (Auto) 5.5 Eos % (Auto) 2.7 Baso % (Auto) 0.8 Absolute Neuts (auto) 6.0 Absolute Lymphs (auto) 3.6 Absolute Monos (auto) 0.6 Absolute Eos (auto) 0.3 Absolute Basos (auto) 0.1 Absolute Nucleated RBC 0.02 Nucleated RBC % 0.2 Sodium 136 Potassium 4.3 Chloride 107 Carbon Dioxide 25 Anion Gap 4 BUN 10 Creatinine 0.90 Est GFR ( Amer) 135.7 Est GFR (Non-Af Amer) 105.5 BUN/Creatinine Ratio 11.1 Glucose 101 H Lactic Acid Calcium 8.9 Total Bilirubin 0.60 Direct Bilirubin 0.10 Indirect Bilirubin 0.5 AST 42 H ALT 51 Alkaline Phosphatase 54 Total Creatine Kinase 877 H Troponin I 0.07 H* Total Protein 6.7 Albumin 4.0 Globulin 2.7 Albumin/Globulin Ratio 1.5 Urine Color Urine Appearance Urine pH Ur Specific [place] Urine Protein Urine Ketones Urine Blood Urine Nitrate Urine Bilirubin Urine Urobilinogen Ur Leukocyte Esterase Urine WBC (Auto) Urine RBC (Auto) Urine Bacteria Urinalysis Comment Urine Glucose Urine Ascorbic Acid Urine Opiates Screen Ur Barbiturates Screen Ur Phencyclidine Scrn Ur Amphetamines Screen U Benzodiazepines Scrn Urine Cocaine Screen U Cannabinoids Screen Imaging: cxr 06/23 - no infiltrate/effusion/ptx Assessment: 20y M with no pmhx; brought in for chest pain/sob? He took 'poppers ' (nitrates) and was hypoxic. -Acute hypoxia 2/2 to methemoglobinemia induced by Nitrates -Elevated troponins, NSTEMI type II from hypoxia is suspected -Hyperlactatemia, resolved -Fever Plan: Neuro- stable. pending psychiatry eval. unlikely to be suicide attempt. CVS-hemodyn stable. no hypotension. lactic acid normalized. on NS infusion, dec to 50cc/hour. Troponins peaked at 1->.54->.07. Echo pending. Repeat EKG this morning shows sinus arrhythmia with repol changes and resolution of inf twave inversions. No chest pain/sob. Most likely clinically demand ischemia in setting of hypoxia. Resp-no resp distress now. on RA. ID-febrile x1, unclear reason. no cough/uri symptoms/diarrhea/sob/abd pain. wbc 10. no hypotension. viral? Monitor off abx. Reactive from stress response yesterday? from nstemi/demand ischemia? so far has been afebrile since yesterday afternoon. GI-regular diet Renal-normal Cr, IVF NS infusion. no patel. making urine. Heme-no anemia. no bleeding. elevated methemoglobin levels on admission, s/p methylene blue adminsitration. Endo- no h/o dm Musculsk-prn tylenol Wounds-none Nutrition-regular diet DVT prophylaxis: none, not at risk for dvt, can mobilize GI prophylaxis:none Central Line:none Arterial Line:none Patel Cathetor:none Disposition: ICU for hypoxia 2/2 to methhemoglobinemia. now resolved. pending psych eval for discharge planning, or downgrade to medical floor? will sign off Code Status: full code Aly Carmona MD [employer] (Electronically Signed)
[2016-06-24] MEDS ORDERED: NS 0.9% 1000 ML* 1,000 ML IV SCH (09:12)
--- NOTE | 2016-06-24 09:44 | ECHO ---
Patient: ANN MARIE MIXON [facility] Rec#: [id number] : 1995 Date: 06/24/2016 Age: 20y Height: 177.8 cm / 70.0 in Weight: 74.84 kg / 164.9 lbs Sex: M BSA: 1.92 Room#: [facility] Admit Date#: 06/23/2016 Type: Inpatient Referring: Rita Wolff DO Reading: James Webber MD House Parent: Yajaira Stover RN RD House Parent: Lisa Jones Transthoracic Echocardiogram Indication: Elevated Troponins BP: 112/58 HR: 71 Rhythm: NSR Findings History: ETOH use, mental health history, [employer]. Technical Comments: The study quality is good. Completed at 0925. Left Ventricle: The left ventricular chamber size is normal. Mild concentric left ventricular hypertrophy is observed. Global left ventricular wall motion and contractility are within normal limits. Left ventricular systolic function is at the lower limits of normal. The estimated ejection fraction is 50-55%. Normal left ventricular diastolic filling is observed. Left Atrium: The left atrial chamber size is normal. Right Ventricle: The right ventricular cavity size is normal. The right ventricular global systolic function is low normal. Right Atrium: The right atrial cavity size is normal. Aortic Valve: The aortic valve is trileaflet. There is no evidence of aortic regurgitation. There is no evidence of aortic stenosis. Mitral Valve: The mitral valve leaflets are mildly thickened. There is a trace of mitral regurgitation. There is no evidence of mitral stenosis. Tricuspid Valve: The tricuspid valve leaflets are normal. There is a physiologic tricuspid regurgitation. Unable to estimate the right ventricular systolic pressure. There is no tricuspid stenosis. Pulmonic Valve: The pulmonic valve appears normal. There is a trace pulmonic regurgitation. There is no pulmonic stenosis. Pericardium: There is no significant pericardial effusion. Aorta: There is no dilatation of the ascending aorta. There is no dilatation of the aortic arch. There is no dilation of the aortic root. Pulmonary Artery: The main pulmonary artery appears normal. Venous: The inferior vena cava appears normal in size. There is a greater than 50% respiratory change in the inferior vena cava dimension. Conclusions Global left ventricular wall motion and contractility are within normal limits. Left ventricular systolic function is at the lower limits of normal. The estimated ejection fraction is 50-55%. Normal left ventricular diastolic filling is observed. The right ventricular global systolic function is low normal. There is no evidence of aortic regurgitation. There is a trace of mitral regurgitation. There is a physiologic tricuspid regurgitation. Unable to estimate the right ventricular systolic pressure. There is no significant pericardial effusion. Measurements Name Value Normal Range RVIDd (AP) 2D 2.7 cm (0.9 - 2.6) RVDdMajor (2D) 3.4 cm (2.2 - 4.4) RAd ISD 4CH 4.7 cm (3.4 - 4.9) RA (A4C)W 3.8 cm (2.9 - 4.6) IVSd (2D) 1.2 cm (0.6 - 1) LVPWd (2D) 1.1 cm (0.6 - 1) LVIDd (2D) 4.6 cm (3.6 - 5.4) LVIDs (2D) 3.1 cm - LV FS (2D) 32 % (25 - 45) Aortic Annulus 2 cm (1.4 - 2.6) Ao root diameter (2D) 2.4 cm (2.1 - 3.5) Ascending Ao 2.5 cm (2.1 - 3.4) Aortic arch 1.9 cm (1.8 - 3.4) LA dimension (AP) 2D 3.8 cm (2.3 - 3.8) LAd ISD 4CH 4.1 cm (2.9 - 5.3) LA ISD 4CH W 3.8 cm (2.5 - 4.5) Name Value Normal Range LA ESV SP 4CH (A/L) 39 ml - LA ESV SP 2CH (A/L) 25 ml - LA ESV BP (A/L) 32 ml - LA ESV BP (A/L) index 16.8 ml/m2 - LA ESV SP 4CH (MOD) 36 ml - LA ESV SP 2CH (MOD) 25 ml - Name Value Normal Range MV E-wave Vmax 0.6 m/sec - MV deceleration time 133 msec - MV A-wave Vmax 0.24 m/sec - MV E:A ratio 2.54 ratio - LV septal e' Vmax 0.15 m/sec - LV lateral e' Vmax 0.21 m/sec - LV E:e' septal ratio 4 ratio - LV E:e' lateral ratio 2.9 ratio - Name Value Normal Range AV Vmax 1.1 m/sec - AV VTI 23.92 cm - AV peak gradient 4.99 mmHg - AV mean gradient 3 mmHg - LVOT Vmax 1.1 m/sec - LVOT VTI 22.31 cm - LVOT peak gradient 4.5 mmHg - LVOT mean gradient 2.25 mmHg - MELISSA Vmax 1 m/sec - Name Value Normal Range IVC diameter 1.9 cm - Name Value Normal Range PV Vmax 0.7 m/sec - PV peak gradient 2 mmHg -
--- NOTE | 2016-06-24 13:03 | CONS ---
PSYCHIATRY CONSULTATION DATE OF CONSULT: 06/24/2016. DATE OF ADMISSION: 06/23/2016. ATTENDING PHYSICIAN: Dr. Yusef Easton. CONSULTING PHYSICIAN: Dr. Jacob Mendoza. REASON FOR CONSULT: Intentional ingestion of isobutyl nitrite. HISTORY OF PRESENT ILLNESS: The patient is a 20-year-old, single, homosexual, male with a history of depression and abuse of inhalant substances who was brought to the emergency room by jaron meier after an intentional overdose of two bottle of liquid isobutyl nitrite in an impulsive parasui cidal gesture. The patient resides here in [place] with his partner, a man named Esvin. Apparently, the two of them had been drinking. The patient got into a fight with his partner and impulsively g rabbed two bottles of isobutyl nitrite, which has a street name of "[address]." It also goes by the n ivonne "sylvester." The patient has no recollection of doing this. The next thing he knew, he woke up in [facility] emergency room where he was quite ill. The patient was brought from the emergency room to the [facility] and Psychiatry is asked to evaluate whether he is safe for discharge. The patient does indicate t hat he moved to [place] from the [place], [place] area approximately eight months ago and he has strugg led with his current relationship. He started seeking therapy and counseling at the [facility] approximately nea-avc-n-half months ago and he sees a clinician named Pro. He has also been assigned to a psychiatrist, however his intake is not until later this month. Wh en screened for suicidality, the patient steadfastly denies any thoughts of self-harm. He states jose f t he has no history of intentionally hurting himself. I spoke with his boyfriend, Esvin, over the p guillermo who likewise indicates that the patient has no history of similar behaviors and believes that h e would be safe to return home. The patient does endorse depressive symptoms, but he denies neuroveg etative symptoms. PAST PSYCHIATRIC HISTORY: He sees a clinician names Pro weekly at [facility] . His next appointment there with Pro will be June 26. In addition, he has an ap pointment to see psychiatrist Bulmaro Casey on July 04. The patient denies any hist ory of suicidality. He denies homicidality or violence towards others. He denies any history of ab use or neglect. He denies any history of traumatic brain injury. PAST MEDICAL HISTORY: Significant for a tonsillectomy as a child, but he has no chronic medical con ditions. MEDICATIONS: He is not currently taking any medications. FAMILY HISTORY: Noncontributory. SUBSTANCE ABUSE HISTORY: Significant for social alcohol consumption. His blood alcohol content at his evaluation in the ER was 94. He does use isobutyl nitrite as an inhaled substance every couple weeks with friends. He denies other drugs of abuse. His urine drug screen was negative for all oth er substances tested. He has never been to rehab and has no history of significant consequences to alcohol or drug abuse. SOCIAL HISTORY: The patient is from [place], [place] where he was raised by his mother. His parents when he was a toddler and he has very little contact with his father. He has been in [facility] [place] for the past eight months, residing with his partner, a man named Esvin. 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 He has a high school diploma and has up to two years of college. He is homosexual and sexually active with his partner. He denies be ing rastafarian. He has no service history. He has no significant legal history. MENTAL STATUS EXAM: The patient is a young, healthy-appearing, male who is well-groomed, w ell-nourished. He is calm and cooperative, easy to establish a rapport with. He is dressed in a pa tient gown, lying with his bed propped up watching TV on a computer in his room. Speech has normal rate, tone and volume. Mood is euthymic with a full affect. Thought process is linear and goal dire cted. Thought content is significant for his desire to leave the hospital. He denies suicidal or ho micidal ideations. He denies auditory or visual hallucinations. Insight and judgment are fair given his willingness to follow-up with outpatient treatment. Cognitively, he is awake and alert with wh at would appear to be an average intellect. DISCHARGE DIAGNOSES: AXIS I: Depressive disorder, not otherwise specified; inhalant use disorder. AXIS II: Deferred. ASSESSMENT: The patient is a 20-year-old, single, homosexual, male with a recent history o f depression who appears to have impulsively taken an overdose of isobutyl nitrite in a para gesture. This occurred in the context of abusing alcohol and being in an argument with his homosexu al partner. At this time, the patient has very little recollection of these events and he steadfast ly denies suicidal ideations. His boyfriend has been spoken with and also agrees that the patient i s not an acute risk to himself. The patient does have follow-up appointments at [facility] already in place. RECOMMENDATIONS TO PRIMARY TEAM: I do not believe that the patient represents any current danger to himself and from a psychiatric standpoint, he is cleared for discharge in order to receive treatmen t as an outpatient. I would recommend that the primary team get a social work consult to confirm th e patient's appointments at [facility]. What he is reporting is that he has an a ppointment with his therapist Pro on Friday, the 26 of June, and an intake appointment wit psychiatrist Bulmaro Casey on July 04. Once these are confirmed, I think the patient can be safely discharged to home. He is reluctant to receive substance abuse treatment at this time; ant landaverde, [facility] can easily make this referral to the [facility] [place]. Thank you for allowing us to participate in the care of this patient. Psychiatry is signing off. [id number]/[facility] #: [id number]
[2016-06-24 15:51] VITALS: BP 120/65
--- NOTE | 2016-06-25 12:12 | DS ---
DISCHARGE SUMMARY: DATE OF ADMISSION: 06/23/16 DATE OF DISCHARGE: 06/24/16 PRIMARY DIAGNOSIS: Methemoglobinemia. SECONDARY DIAGNOSES: Include: 1. Depression. 2. Lactic acidosis and demand ischemia with elevated troponin. 3. Transaminitis and elevated total creatinine. MEDICATIONS AT DISCHARGE: Include acetaminophen 650 mg as needed for pain. PERTINENT IMAGING: Includes transthoracic echocardiogram. Impression: Global left ventricular wall motion and contractility within normal limits with estimated LVEF 50% to 55%. Normal left ventricular diastolic filling. Right ventricular global systolic function is well and normal. No evidence of AR, trace MR, physiologic TR. No significant pericardial effusion. PERTINENT LABORATORY DATA: Partial pressure of CO2, arterial blood gas 29 on presentation with O2 of 95%. Lactic acid 4.0 on presentation, trended down to 1.5 with crystalloid replacement. Total creatine kinase on presentation 504, on discharge 807. Troponin peaked at 1.0. Serum alcohol 94. HISTORY OF PRESENT ILLNESS AND HOSPITAL COURSE: A 20-year-old man, MSM, presented to the hospital after injecting 2 bottles of isobutyl nitrate. Apparently, the patient had a fight with his partner, ingested 2 bottles of isobutyl nitrate, locked himself in his apartment. There was also alcohol in his blood on presentation. He was seen in the emergency room, diagnosed with methemoglobinemia, received methylene blue with improvement of clinical status. He was cared for in conjunction with Poison Control as well as our local surgery tech. There was concern as this is a purposeful ingestion. He was seen in consultation with Psychiatry, not deemed as a harm to self and was safe for discharge from a psychiatric point of view. Dr. Mendoza did touch base the patient's outpatient therapist, Pro, as well as Dr. Casey, both of with whom the patient has a followup appointment. Of note the patient had elevated troponin, it was thought it represents demand ischemia. No other evidence of cardiac ischemia. The patient on release will have his medical information released to Dr. Casey on discharge. At followup please; 1. Evaluate for abstinence of continued toxic substances. 2. Consider repeat creatine kinase to ensure continued resolution. 3. Encourage age-appropriate screening for this gentleman including HIV at [facility] Reasons to return to the hospital included but not limited to worsening of symptoms including chest pain, shortness of breath, nausea, vomiting, lightheadedness, loss of consciousness, near loss of consciousness, fevers, chills, night sweats, increased urination or change in the color of urine to which the patient acknowledged understanding. TIME SPENT: Greater than 45 minutes were spent on the discharge of this patient , greater than half was spent [id number] with the patient. [id number]/[facility] #: [id number] MTDD
== END 2016-06-24 16:10 | disposition home or self-care (01) | DRG 918 ==
LOC: ED 04:46 → ICU 06:51
PROVIDERS: ADMIT Internal Medicine; ATTEND Internal Medicine
DX: T52.8X2A Toxic effect of other organic solvents, intentional self-harm, initial encounter (principal); E87.2 Acidosis; I24.8 Other forms of acute ischemic heart disease; D74.9 Methemoglobinemia, unspecified; R09.02 Hypoxemia; F32.9 Major depressive disorder, single episode, unspecified; Y92.012 Bathroom of single-family (private) house as the place of occurrence of the external cause; Z91.5 Personal history of self-harm
CPT/HCPCS: 36415; 36600; 71010; 80048; 80053; 80074; 80076; 80307; 80320; 80329; 81003; 82140; 82550; 82553; 82803; 83050; 83605; 83690; 83735; 83880; 84443; 84484; 85025; 85610; 85730; 86140; 86703; 87641; 93005; 93306; A9270-GY; G0480; J0330; J2250; J2405